=== PATIENT | female | born 1955 | race Caucasian/White ===

== ENCOUNTER → 2017-07-01 | Outpatient (CLI) | payer OTHER ==
[~2017-07-01] MED LIST: ASPI81CH5; ATEN25TA PO; CLEO300C2; GLUCTAB; JANU50TA8 PO; LIOT25TA3 PO; NATE60TA PO; PIOG15; STAR60TA; TIRO25CA PO; TRIA0.022 TOPICAL
--- NOTE | 2017-07-01 11:52 | RADRPT ---
EXAM DATE/TIME: 07/01/2017 10:53 [place] COMPARISON: No previous studies available for comparison. INDICATIONS : Evaluate for pneumonia, pneumothorax, or communicable disease. Pre op D&C and hysterctomy. MEDICAL HISTORY : None. SURGICAL HISTORY : None. ENCOUNTER: Initial ACUITY: 1 day PAIN SCORE: 0/10 LOCATION: Bilateral chest FINDINGS: PA and lateral views of the chest demonstrate the lungs to be symmetrically aerated without evidence of mass, infiltrate or effusion. The cardiomediastinal contours are unremarkable. Osseous structure s are intact. CONCLUSION: No acute disease. Joby Kline MD on July 01, 2017 at 11:50 Board Certified Radiologist. This report was verified electronically.
[2017-07-01 12:00] LABS: HEMATOCRIT 36.8 % (35.0-46.0); HEMOGLOBIN 12.4 GM/DL (11.6-15.3); MEAN CELL VOLUME 93.7 FL (80.0-100.0); MEAN CORPUSCULAR HEMOGLOBIN 31.6 PG (27.0-34.0); MEAN CORPUSCULAR HGB CONC 33.7 % (32.0-36.0); MEAN PLATELET VOLUME 9.9 FL (7.0-11.0); PLATELET COUNT 243 TH/MM3 (150-450); RED BLOOD COUNT 3.93 MIL/MM3 (4.00-5.30); RED CELL DISTRIBUTION WIDTH 12.5 % (11.6-17.2); WHITE BLOOD COUNT 4.2 TH/MM3 (4.0-11.0)
[2017-07-01 12:38] LABS: CALCIUM 9.6 MG/DL (8.5-10.1); CREATININE 0.65 MG/DL (0.50-1.00)
[2017-07-01 12:54] LABS: BILIRUBIN, URINE NEG (NEG); BLOOD, URINE NEG (NEG); GLUCOSE,URINE NEG (NEG); KETONE, URINE NEG (NEG); NITRITE,URINE NEG (NEG); PH, URINE 7.5 (5.0-8.5); URINE COLOR LIGHT-YELLOW (YELLW/STRAW); URINE LEUKOCYTE ESTERASE NEG (NEG)
== END ==
LOC: CPRE 09:56
PROVIDERS: ATTEND Obstetrics & Gynecology
DX: Z01.812 Encounter for preprocedural laboratory examination (principal); Z01.811 Encounter for preprocedural respiratory examination; D25.9 Leiomyoma of uterus, unspecified; N83.209 Unspecified ovarian cyst, unspecified side; R93.8 Abnormal findings on diagnostic imaging of other specified body structures
CPT/HCPCS: 36415; 71046; 80048; 81001; 85027

== ENCOUNTER → 2017-09-30 | Outpatient (CLI) | payer OTHER ==
[~2017-09-30] MED LIST changes: +ALPH600C PO; -ASPI81CH5; +CHOL5000 PO; -CLEO300C2; +CO Q100C9 PO; +CYAN100025 SL; +FISH100020 PO; -GLUCTAB; +LACTCAP8 PO; +LECI12002 PO; +MULT-65 PO; -PIOG15; +PRESCAP6 PO; -STAR60TA; +TIRO75CA PO; +VITA500T83 PO
[2017-09-30 10:39] LABS: HEMATOCRIT 38.4 % (35.0-46.0); MEAN CELL VOLUME 92.4 FL (80.0-100.0); MEAN CORPUSCULAR HEMOGLOBIN 31.2 PG (27.0-34.0); MEAN CORPUSCULAR HGB CONC 33.8 % (32.0-36.0); MEAN PLATELET VOLUME 10.4 FL (7.0-11.0); PLATELET COUNT 245 TH/MM3 (150-450); RED BLOOD COUNT 4.15 MIL/MM3 (4.00-5.30); RED CELL DISTRIBUTION WIDTH 12.6 % (11.6-17.2); WHITE BLOOD COUNT 5.2 TH/MM3 (4.0-11.0)
[2017-09-30 10:52] LABS: ALBUMIN 4.4 GM/DL (3.4-5.0); AST (GOT) 12 U/L (15-37); BICARBONATE 27.6 MEQ/L (21.0-32.0); BLOOD UREA NITROGEN 11 MG/DL (7-18); CALCIUM 9.6 MG/DL (8.5-10.1); CHLORIDE 101 MEQ/L (98-107); CREATININE 0.68 MG/DL (0.50-1.00); GLOMERULAR FILTRATION RATE 87 ML/MIN (>89); GLUCOSE,FASTING 163 MG/DL (74-99); SODIUM (NA) 136 MEQ/L (136-145)
[2017-09-30 10:55] LABS: ALKALINE PHOSPHATASE 76 U/L (45-117); ALT (GPT) 21 U/L (10-53); TOTAL BILIRUBIN ADULT 0.4 MG/DL (0.2-1.0); TOTAL PROTEIN 7.4 GM/DL (6.4-8.2)
[2017-09-30 11:24] LABS: BILIRUBIN, URINE NEG (NEG); BLOOD, URINE NEG (NEG); GLUCOSE,URINE NEG (NEG); KETONE, URINE NEG (NEG); NITRITE,URINE NEG (NEG); URINE COLOR LIGHT-YELLOW (YELLW/STRAW); URINE LEUKOCYTE ESTERASE NEG (NEG)
== END ==
LOC: CPRE 09:55
PROVIDERS: ATTEND Obstetrics & Gynecology
DX: Z01.812 Encounter for preprocedural laboratory examination (principal); R93.8 Abnormal findings on diagnostic imaging of other specified body structures; D25.9 Leiomyoma of uterus, unspecified; N83.209 Unspecified ovarian cyst, unspecified side
CPT/HCPCS: 36415; 80053; 81001; 85027

== ENCOUNTER → 2017-10-06 | Day surgery (SDC) | payer OTHER ==
[~2017-10-06] VITALS: Ht 170.2 cm; Wt 61.6 kg
[~2017-10-06] MED LIST changes: +*morphine SULFATE 4 MG/ML PERIprocedure ONLY ONE; +ACETAMINOPHEN 1000 MG/100 ML 100 ML IV ONE; +BUPIVACAINE/EPINEPHRINE 0.5% PF 30 ML VIAL INFIL ONE; +CHLORHEXIDINE GLUCONATE 2 % 1 PACK (2 CLOTHS) TOPICAL PRN; +CLINDAMYCIN 600 MG/NS PREMIX 50 ML IV SCH; +DEXAMETHASONE SOD PHOS 4 MG/ML VIAL IV ONE; +DO NOT ADM ANY ANTICOAGULANT DRUGS PRN; +GLYCOPYRROLATE 1 MG/5 ML SYRINGE IV PUSH ONE; +INSULIN HUMAN REGULAR 1,000 UNITS/10 ML VIAL SQ PRN; +KETOROLAC TROMETHAMINE 30 MG/ML (IVP) VIAL IV PUSH ONE; +KETOROLAC TROMETHAMINE 60 MG/2 ML (IM) VIAL IM PRN; +LACTATED RINGER'S 1000 ML IV PRN; +LEVOFLOXACIN 500 MG PREMIX INJ 100 ML IV SCH; +LIDOCAINE HCL 1% PF 5 ML SYRINGE OTHER ONE; +METOPROLOL TARTRATE 25 MG TAB PO PRN; +MIDAZOLAM HCL 2 MG/2 ML VIAL ONE; +NEOSTIGMINE 5 MG/5 ML SYRINGE IV PUSH ONE; +ONDANSETRON HCL 4 MG/2 ML VIAL IV PUSH ONE; +ONDANSETRON ODT 4 MG TAB SL PRN; +PHENYLEPH/NS 1000 MCG/10 ML SYR IV ONE; +POVIDONE IODINE 5% (ANTISEPSIS KIT) 4 APPLICATIONS EACH NARE PRN; +PROPOFOL 200 MG/20 ML AMP IV ONE; +ROCURONIUM INJ 50 MG/5 ML SYRINGE IV PUSH ONE; +SODIUM CHLORID 0.9% 500 ML IV PRN; -TIRO25CA PO; -TRIA0.022 TOPICAL; +ePHEDrine/NS 25 MG/5 ML SYRINGE IV ONE; +oxyCODONE/ACETAMINOPHEN 5 MG/325 MG TAB PO PRN
--- NOTE | 2017-10-06 10:22 | MP ---
cc: Renata Cabral MD DATE OF OPERATION: 10/06/2017 PREOPERATIVE DIAGNOSES: 1. Fibroid uterus. 2. Bilateral ovarian cysts. POSTOPERATIVE DIAGNOSES: 1. Fibroid uterus. 2. Bilateral ovarian cysts. PROCEDURE PERFORMED: Examination under anesthesia, dilatation and curettage, laparoscopy, bilateral salpingo-oophorectomy, lysis of adhesions, myomectomy. SURGEON: Dr. Cabral. ANESTHESIA: General endotracheal anesthesia. FLUIDS: 600 mL crystalloid. ESTIMATED BLOOD LOSS: 10 mL. URINE OUTPUT: 250 mL, clear yellow at the end of the procedure. FINDINGS: Uterus was approximately 8-10 weeks in size on examination under anesthesia. At laparoscopy a right-sided 2 cm pedunculated fibroid was noted. The right ovary was extremely adherent to the right pelvic sidewall. There was a left endometrioma on the left ovary and approximately 5 cm intramural fibroid in the uterus. PROCEDURES: The patient was taken to the operating room where general anesthesia was found to be adequate. She was then prepped and draped in the normal sterile fashion in the dorsal lithotomy position. A James catheter was inserted into the urinary bladder using sterile technique. A speculum was placed in the vagina, a single-tooth tenaculum applied to the anterior lip of the cervix. The cervix was gently dilated with Nazario dilator sizes 9 through 18. An endometrial curettage was performed and sent to pathology. The tenaculum was then replaced with a suture of 0 Vicryl on the anterior lip of the cervix. The medium V-Care uterine manipulator was then placed into the uterus. The balloon was inflated. The cups were positioned. The speculum was removed. Gloves were changed and attention was turned to the abdominal portion of the procedure. A 5 mm incision and trocar was placed just above the umbilicus under direct visualization. The abdomen was insufflated with approximately 3.5 liters of CO2 gas. The findings were then noted as above. Two additional trocars were placed in the right and left lower quadrants, 5 mm and 10-12 mm under direct visualization. The left infundibulopelvic ligament was then transected with the harmonic scalpel. The left tube and ovary were transected from the broad ligament using the harmonic scalpel. Hemostasis was assured. The left tube and ovary were placed in an EndoCatch bag and removed, sent to pathology. The right-sided pedunculated fibroid was then transected from the right side of the uterus and tube using the harmonic scalpel. This was placed in the anterior cul-de-sac. The adhesions encasing the right ovary were then transected using the harmonic scalpel. The right infundibulopelvic ligament was transected using the harmonic scalpel and the right tube and ovary were transected from the right broad ligament using the harmonic scalpel. These were placed in an EndoCatch bag, along with the right-sided pedunculated fibroid and removed and sent to pathology. The pelvis was irrigated and suctioned. Hemostasis was assured. The ureters were noted to be peristalsing bilaterally transperitoneally. The crossbow was then used to suture the fascia and peritoneum of the left lower quadrant 12 mm incision. An additional suture was placed through the fascia in the left lower quadrant incision. The gas was allowed to escape. All of the instruments were removed from the abdominal cavity. The skin incisions were closed, subcuticular with 4-0 Monocryl. The V-Care uterine manipulator was removed. The suture was cut from the anterior lip of the cervix. Hemostasis was assured. The patient was awakened from anesthesia and transferred to the recovery room in stable condition. The sponge, lap, needle and instrument counts were correct. Pathology was left fallopian tube and ovary, right fallopian tube and ovary and pedunculated fibroid and endometrial curettage. MD WESLEY Basurto/FELA , 09:58 AM , 10:21 AM [facility]
[2017-10-06 12:58] VITALS: BP 117/63; PULSE 76; RESP 18; TEMP 97; O2SAT 100
== END | disposition home or self-care (01) ==
LOC: HSDC 06:01
PROVIDERS: ATTEND Obstetrics & Gynecology
DX: D25.9 Leiomyoma of uterus, unspecified (principal); N83.201 Unspecified ovarian cyst, right side; N83.202 Unspecified ovarian cyst, left side
CPT/HCPCS: 00840; 58120; 58545; 58661; 86850; 86900; 86901; 88305; 88307; 88311; J0131; J1100; J1885; J1956; J2250; J2270; J2370; J2405; J2710; J3010; J7120